=== PATIENT | female | born 1965 | race Caucasian/White ===

== ENCOUNTER 2019-01-10 22:11 | Emergency (ER) | payer OTHER ==
[~2019-01-10] VITALS: Ht 162.6 cm; Wt 71.2 kg
[2019-01-10 22:14] VITALS: BP 134/94
[2019-01-10 22:23] VITALS: BP 134/94
--- NOTE | 2019-01-10 22:23 | NUR ---
53 Y/O F PRESENTED TO ED WITH C/O OF ABSCESS TO R LEG X1 DAY. AAOX4. PER PT "I THINK I MIGHT HAVE BEEN BITTEN BUT I'M NOT SURE. THEY STARTED OUT SMALL AND GOT BIGGER." 12/28 PAIN, ACHING. ABSCESS NOTED TO R INNER KNEE, R ANTERIOR CALF, AND R POSTERIOR THIGH. ABSCESS HARDENED. WARM TO TOUCH AND TENDER. HURTS TO AMBULATE PER PT. ERMD NOTIFIED. WILL CONTINUE TO MONITOR.
[2019-01-10] MEDS ORDERED: SULFAMETH/TRIMETH DS 800/160MG 1 TAB PO ONE (22:50)
[2019-01-10] MEDS ORDERED: IBUPROFEN 800 MG TAB PO ONE (22:50)
== END 2019-01-10 23:08 | disposition home or self-care (01) ==
LOC: MED 22:11
DX: S80.261A Insect bite (nonvenomous), right knee, initial encounter (principal); S80.861A Insect bite (nonvenomous), right lower leg, initial encounter; L08.9 Local infection of the skin and subcutaneous tissue, unspecified; K50.90 Crohn's disease, unspecified, without complications; W57.XXXA Bitten or stung by nonvenomous insect and other nonvenomous arthropods, initial encounter; Y93.89 Activity, other specified; Y92.89 Other specified places as the place of occurrence of the external cause; Y99.8 Other external cause status
CPT/HCPCS: 99283